=== PATIENT | male | born 1950 | race Caucasian/White ===

== ENCOUNTER 2018-03-02 19:25 | Inpatient (IN) | payer OTHER, MEDICARE ==
[~2018-03-02] VITALS: Ht 172.7 cm; Wt 102.1 kg
--- NOTE | 2018-03-02 19:50 | NUR ---
PT BIB PA WITH A C/O SI WITH A PLAN. PT IS ON A 5250 OF TODAY 03/02/18. PT STATED THAT HE REGRETS THE DECISION THAT HE MADE THE OTHER DAY. PT IS CALM AND COOPERATIVE. PT IS AWAITING MED CLEARANCE FOR MAE PSYCH.
--- NOTE | 2018-03-02 20:10 | NUR ---
CALLED [employer] RE: [id number]. ORIGINAL 5250 IS IN THE CHART.
--- NOTE | 2018-03-02 20:10 | NUR ---
PT IS GOING TO [facility]
[2018-03-02 20:23] LABS: BASOPHILS % (AUTO) 0.3 % (0.0-2.0); EOSINOPHILS % (AUTO) 0.5 % (0.0-6.0); HEMATOCRIT 45 % (39-51); HEMOGLOBIN 15.5 g/dL (13.5-17.5); LYMPHOCYTES # (AUTO) 0.8 /CMM (0.8-4.8); LYMPHOCYTES % (AUTO) 10.8 % (20.0-44.0); MEAN CORPUSCULAR HGB CONC 34 g/dl (31.0-36.0); MEAN CORPUSCULAR VOLUME 87 fL (80-96); MONOCYTES # (AUTO) 0.3 /CMM (0.1-1.30); MONOCYTES % (AUTO) 4.3 % (2.0-12.0); NEUTROPHILS # (AUTO) 5.9 /CMM (1.8-8.9); NEUTROPHILS % (AUTO) 84.1 % (43.0-81.0); PLATELET COUNT (AUTO) 211 /CMM (150-450)
[2018-03-02 20:48] LABS: ACETAMINOPHEN < 2 ug/ml (10-30); ALANINE AMINOTRANSFERASE 22 U/L (12-78); ALBUMIN 3.8 g/dL (3.4-5.0); ALCOHOL, BLOOD < 3 mg/dL (0-0); ALKALINE PHOSPHATASE 68 U/L (46-116); ASPARTATE AMINOTRANSFERASE 15 U/L (15-37); BILIRUBIN,DIRECT 0.1 mg/dL (0.0-0.2); BILIRUBIN,TOTAL 0.6 mg/dL (0.2-1.0); CALCIUM, SERUM 9.4 mg/dL (8.5-10.1); CARBON DIOXIDE 24 mmol/L (21-32); CHLORIDE 104 mmol/L (98-107); GLUCOSE 188 mg/dL (74-106); SALICYLATE 1.1 mg/dL (2.8-20.0); SODIUM SERUM 137 mmol/L (136-145); TOTAL PROTEIN, SERUM 7.3 g/dL (6.4-8.2); UREA NITROGEN, BLOOD 21 mg/dL (7-18)
[2018-03-02 21:17] LABS: APPEARANCE,URINE Clear (CLEAR); BILIRUBIN,URINE Negative (NEGATIVE); BLOOD, URINE Negative Ery/uL (NEGATIVE); COLOR,URINE Yellow (YELLOW); KETONES,URINE Negative (NEGATIVE); LEUKOCYTE ESTERASE ,URINE Negative (NEGATIVE); NITRITE, URINE Negative (NEGATIVE); PH,URINE 5.5 (5.0-8.0); PROTEIN,URINE Negative (NEGATIVE); UGLUCOSE Negative (NEGATIVE); UROBILINOGEN,URINE 0.2 EU/dL (0.2)
--- NOTE | 2018-03-02 21:20 | NUR ---
CALLED LAB RE: URINE TESTS NOT RESULTED YET.
--- NOTE | 2018-03-02 21:33 | NUR ---
REPORT TO HIRAL REVELES .
[2018-03-02 21:45] VITALS: BP 162/89
[2018-03-02 22:00] VITALS: BP 162/89
--- NOTE | 2018-03-02 22:00 | NUR ---
DISTRIBUTION COLLECTION OPERATOR NOTES RECEIVED PT FROM THE ED. PT A & 0X4, COOPERATIVE. PT TRANSFERRED FROM [facility]. PT HAS AN ABRASION TO FOREHEAD AND LACERATION ON NOSE, OTHER AGGARWAL SKIN IS INTACT. PT AMBULATE WITH STEADY GATE. PT SHOWS NO SIGNS OF DISTRESS. PT ORIENTED TO FLOOR AND ROOM. ALL SAFETY PRECAUTION TAKEN. ALL ADMISSION ORDERS COMPLETED. WILL CONT TO MONITOR.
[2018-03-02] MEDS ORDERED: MAG HYDROX/AL HYDROX/SIMETH 30 ML UDC PO PRN (22:30)
[2018-03-02] MEDS ORDERED: ACETAMINOPHEN 325 MG TABLET PO PRN (22:30)
[2018-03-02] MEDS ORDERED: LORAZEPAM 0.5 MG TABLET PO PRN (22:30)
[2018-03-02] MEDS ORDERED: MAGNESIUM HYDROXIDE 30 ML UDC PO PRN (22:30)
[2018-03-03] MEDS: ZOLPIDEM TARTRATE 5 MG TABLET PO PRN ×2 (00:17→22:27)
--- NOTE | 2018-03-03 04:42 | NUR ---
GPS RN NOTE: PATIENT AWAKE READING MAGAZINE IN ROOM. DENIES COMPLAINTS. SLEEPING PILL PRN BRIEFLY EFFECTIVE. NO APPARENT DISTRESS
--- NOTE | 2018-03-03 06:15 | NUR ---
RN CLOSING NOTES NO SIGNIFICANT CHANGE IN PTS CONDITION OVER SHIFT. ALL MEDS GIVEN, NEEDS ATTENDED. WILL ENDORSE TO AM RN.
[2018-03-03 06:55] LABS: BASOPHILS % (AUTO) 0.3 % (0.0-2.0); EOSINOPHILS % (AUTO) 1.1 % (0.0-6.0); HEMATOCRIT 47 % (39-51); HEMOGLOBIN 15.9 g/dL (13.5-17.5); LYMPHOCYTES % (AUTO) 15.2 % (20.0-44.0); MEAN CORPUSCULAR HGB CONC 34 g/dl (31.0-36.0); MEAN CORPUSCULAR VOLUME 89 fL (80-96); MONOCYTES # (AUTO) 0.7 /CMM (0.1-1.30); MONOCYTES % (AUTO) 10.5 % (2.0-12.0); NEUTROPHILS % (AUTO) 72.9 % (43.0-81.0); PLATELET COUNT (AUTO) 196 /CMM (150-450); WHITE BLOOD COUNT (AUTO) 6.9 K/uL (4.3-11.0)
[2018-03-03 07:16] LABS: ALBUMIN 3.8 g/dL (3.4-5.0); BILIRUBIN,TOTAL 0.6 mg/dL (0.2-1.0); CALCIUM, SERUM 9.1 mg/dL (8.5-10.1); CREATININE 0.8 mg/dL (0.6-1.3); TOTAL PROTEIN, SERUM 7.3 g/dL (6.4-8.2)
[2018-03-03 07:27] LABS: CHOLESTEROL 194 mg/dL (<200); HDL CHOLESTEROL 43 mg/dL (40-60); LDL 122 mg/dL (0-99); TRIGLYCERIDES 146 mg/dL (30-150)
[2018-03-03 08:13] VITALS: BP 140/90
[2018-03-03] MEDS ORDERED: LORA0.5T PO (08:32)
[2018-03-03] MEDS ORDERED: FENO54TA PO (08:32)
[2018-03-03] MEDS ORDERED: QUET400T PO (08:32)
[2018-03-03] MEDS ORDERED: HYDR-3028 PO (08:32)
[2018-03-03] MEDS ORDERED: ATOR10TA PO (08:32)
[2018-03-03] MEDS ORDERED: CYCL5TAB PO (08:32)
[2018-03-03] MEDS: ESCITALOPRAM OXALATE (10 MG) 10 MG TABLET PO SCH (12:51)
[2018-03-03 16:00] VITALS: BP 129/74
--- NOTE | 2018-03-03 16:58 | NUR ---
Initial Discharge Plan: Pt currently resides by himself at [address] [place] [address]; ([phone]). Per pt, he would like to return home. SW will work with the pt and the MD regarding appropriate discharge plans. SW will form a safe and proper discharge.
[2018-03-03 20:00] VITALS: BP 156/86
[2018-03-03] MEDS: FENOFIBRATE 54 MG PO SCH (22:26)
[2018-03-03] MEDS: ATORVASTATIN 10 MG TABLET PO SCH (22:27)
[2018-03-03] MEDS: QUETIAPINE FUMARATE 100 MG TABLET PO SCH (22:27)
[2018-03-04 07:52] LABS: THYROID STIMULATING HORMONE 4.128 uIU/mL (0.358-3.74)
[2018-03-04 08:00] VITALS: BP 143/80
[2018-03-04] MEDS: ESCITALOPRAM OXALATE (10 MG) 10 MG TABLET PO SCH (09:00)
[2018-03-04 16:00] VITALS: BP 142/85
--- NOTE | 2018-03-04 19:30 | NUR ---
RN NOTES PATIENT SITTING IN CHAIR IN HALLWAY. AO X 3, ABLE TO MAKE NEEDS KNOWN. NO ACUTE DISTRESS NOTED. DENIES ANY PAIN AT THIS TIME. DENIES ANY SUICIDAL IDEATIONS. PATIENT'S BEHAVIOR IS APPROPRIATE. SAFETY REMINDERS GIVEN. BED IN ROOM IS SET ON LOW WITH BILATERAL UPPER SIDE RAILS UP. PATIENT ABLE TO USE CALL BUTTON. WILL CONTINUE TO MONITOR.
[2018-03-04 20:00] VITALS: BP 140/89
[2018-03-04] MEDS: ATORVASTATIN 10 MG TABLET PO SCH (21:20)
[2018-03-04] MEDS: QUETIAPINE FUMARATE 100 MG TABLET PO SCH (21:20)
[2018-03-04] MEDS: ZOLPIDEM TARTRATE 5 MG TABLET PO PRN (21:20)
[2018-03-04] MEDS: FENOFIBRATE 54 MG PO SCH (21:21)
--- NOTE | 2018-03-05 06:14 | NUR ---
RN NOTES PATIENT ASLEEP, EASILY AROUSABLE. RESPIRATIONS EVEN. NO SIGNS OF PAIN NOTED. DUE MEDS GIVEN WITH NO ASE NOTE. NEEDS ATTENDED. SAFETY PRECAUTIONS AND COMFORT MEASURES IN PLACE. WILL GIVE REPORT TO DAY SHIFT FOR CONTINUITY OF CARE.
[2018-03-05 08:00] VITALS: BP 139/81
[2018-03-05] MEDS: SERTRALINE HCL 50 MG TABLET PO SCH (08:57)
[2018-03-05 16:00] VITALS: BP 157/78
[2018-03-05 18:44] LABS: APPEARANCE,URINE CLEAR (CLEAR); BILIRUBIN,URINE NEGATIVE (NEGATIVE); BLOOD, URINE NEGATIVE Ery/uL (NEGATIVE); COLOR,URINE YELLOW (YELLOW); KETONES,URINE TRACE (NEGATIVE); LEUKOCYTE ESTERASE ,URINE NEGATIVE (NEGATIVE); NITRITE, URINE NEGATIVE (NEGATIVE); PH,URINE 5.5 (5.0-8.0); PROTEIN,URINE NEGATIVE (NEGATIVE); UGLUCOSE NEGATIVE (NEGATIVE); UROBILINOGEN,URINE 0.2 EU/dL (0.2)
[2018-03-05 19:09] LABS: BACTERIA,URINE None seen /HPF (None Seen); MUCUS,URINE Many /LPF (None Seen); RBC,URINE 0-2 /HPF (0-2); SQUAMOUS EPITHELIAL CELL,UR Few /HPF (None Seen); WBC,URINE 0-2 /HPF (0-3)
[2018-03-05 20:03] VITALS: BP 135/76
[2018-03-05] MEDS: FENOFIBRATE 54 MG PO SCH (21:36)
[2018-03-05] MEDS: ATORVASTATIN 10 MG TABLET PO SCH (21:37)
[2018-03-05] MEDS: QUETIAPINE FUMARATE 100 MG TABLET PO SCH (21:37)
--- NOTE | 2018-03-05 21:37 | NUR ---
AMBIEN 5 MG TAB 1 PO GIVEN FOR INSOMNIA PER PATIENT'S REQUEST
[2018-03-05] MEDS: ZOLPIDEM TARTRATE 5 MG TABLET PO PRN (21:39)
[2018-03-06 08:22] VITALS: BP 154/81
[2018-03-06] MEDS: SERTRALINE HCL 50 MG TABLET PO SCH (08:32)
[2018-03-06 16:00] VITALS: BP 131/87
--- NOTE | 2018-03-06 16:45 | NUR ---
ALESSIA faxed an initial treatment request form to the pt's insurance called [facility] at [phone].
[2018-03-06 20:00] VITALS: BP 136/74
[2018-03-06] MEDS: ATORVASTATIN 10 MG TABLET PO SCH (21:29)
[2018-03-06] MEDS: QUETIAPINE FUMARATE 100 MG TABLET PO SCH (21:29)
[2018-03-06] MEDS: ZOLPIDEM TARTRATE 5 MG TABLET PO PRN (21:32)
[2018-03-06] MEDS: FENOFIBRATE 54 MG PO SCH (21:53)
--- NOTE | 2018-03-07 06:20 | NUR ---
GPS/RN PATIENT STILL SLEEPING AT THIS TIME, APPEAR COMFORTABLE, BREATHING EVEN AND UNLABORED, NO BEHAVIOR PROBLEM NOTED THE WHOLE SHIFT, ALL NEEDS ATTENDED AT THIS TIME. WILL CONTINUE TO MONITOR.
[2018-03-07 08:52] VITALS: BP 143/87
[2018-03-07] MEDS: SERTRALINE HCL 50 MG TABLET PO SCH (09:06)
--- NOTE | 2018-03-07 10:57 | NUR ---
ALESSIA spoke to Tita ([phone]) at [facility] and she stated that the pt is authorized for 7 days so from March 02-March 09 (authorization #[id number]). ALESSIA informed Tita that the pt will be discharging tomorrow on his 6th day.
--- NOTE | 2018-03-07 11:09 | NUR ---
ALESSIA spoke to Kenia Garner ([phone]) and discussed that she will be picking the pt up at 11am tomorrow and taking him home to [address] [place] [address].
[2018-03-07 16:00] VITALS: BP 136/71
[2018-03-07 20:27] VITALS: BP 144/70
[2018-03-07] MEDS: ATORVASTATIN 10 MG TABLET PO SCH (21:20)
[2018-03-07] MEDS: FENOFIBRATE 54 MG PO SCH (21:20)
[2018-03-07] MEDS: QUETIAPINE FUMARATE 100 MG TABLET PO SCH (21:21)
[2018-03-08] MEDS: ZOLPIDEM TARTRATE 5 MG TABLET PO PRN (00:33)
[2018-03-08 07:50] LABS: BASOPHILS % (AUTO) 0.3 % (0.0-2.0); EOSINOPHILS % (AUTO) 1.9 % (0.0-6.0); HEMATOCRIT 47 % (39-51); HEMOGLOBIN 15.6 g/dL (13.5-17.5); LYMPHOCYTES # (AUTO) 1.1 /CMM (0.8-4.8); LYMPHOCYTES % (AUTO) 16.2 % (20.0-44.0); MEAN CORPUSCULAR HGB CONC 34 g/dl (31.0-36.0); MEAN CORPUSCULAR VOLUME 90 fL (80-96); MONOCYTES # (AUTO) 0.6 /CMM (0.1-1.30); NEUTROPHILS # (AUTO) 4.9 /CMM (1.8-8.9); NEUTROPHILS % (AUTO) 72.6 % (43.0-81.0); PLATELET COUNT (AUTO) 168 /CMM (150-450); RED BLOOD CELL COUNT(AUTO) 5.19 MIL/uL (4.5-6.0); WHITE BLOOD COUNT (AUTO) 6.8 K/uL (4.3-11.0)
[2018-03-08 08:00] VITALS: BP 129/81
[2018-03-08 08:03] LABS: CALCIUM, SERUM 9.1 mg/dL (8.5-10.1); MAGNESIUM 2.1 mg/dL (1.8-2.4); PHOSPHORUS 3.1 mg/dL (2.5-4.9)
[2018-03-08] MEDS: SERTRALINE HCL 50 MG TABLET PO SCH (08:26)
--- NOTE | 2018-03-08 10:42 | NUR ---
pt discharge by dr. haines. hydraulic jack adjuster aware. pt going [id number] [place] [address]. pt is being picked up by a friend, ren garber [phone]. pt is alert oriented x 4 and ambulatory. he is calm and cooperative. denies s/i and/or h/i at time of dc. no acute distress noted. exitcare completed. psych medication prescribed. pt has medication medication at home, states he does not a prescription from hydraulic jack adjuster. skin intact. belongings with patient. pt left in stable condition.
--- NOTE | 2018-03-08 11:56 | NUR ---
Discharge Note: - Pt was discharged home to [address] [place] [address]. He was picked up by Jackie Garner ([phone]) around 11am. Pt was given three referrals for psychiatrists that are listed below and was directly referred to one of them. Upon discharge, the pt denied suicidal and homicidal ideation as well as visual and auditory hallucinations. Pts mood and affect were calm and euthymic upon discharge. The pt was referred to be under the care of the psychiatrist, Dr. Shiv Montenegro, who is located at [address] [place] [address]; ) and will be under the care of his medical transcription supervisor, Dr. Grupo Reardon, who is located at [address] [place], [place] [id number]; . HEATHER MANDUJANO Primary specialty: Psychiatry Additional specialty: Psychiatry (Geriatric) [address] [place] [address] SHIV MONTENEGRO Primary specialty: Psychiatry Additional specialty: Psychiatry (Geriatric) [address] [place] [address] BROOKLYN DEL CID Primary specialty: Psychiatry Additional specialty: Psychiatry (Geriatric) [address] [place] [address]
--- NOTE | 2018-03-08 12:18 | NUR ---
ALESSIA faxed the discharge paperwork to Tita ([phone]) at [facility] to her fax number ([phone]).
== END 2018-03-08 10:50 | disposition home or self-care (01) | DRG 885 ==
LOC: ER 19:33 → GPS 22:11
PROVIDERS: ADMIT Psychiatry & Neurology Psychiatry; ATTEND Psychiatry & Neurology Psychiatry
DX: F32.2 Major depressive disorder, single episode, severe without psychotic features (principal); R45.851 Suicidal ideations; E66.01 Morbid (severe) obesity due to excess calories; E11.9 Type 2 diabetes mellitus without complications; E86.0 Dehydration; F43.20 Adjustment disorder, unspecified; F41.9 Anxiety disorder, unspecified; E03.9 Hypothyroidism, unspecified; E78.5 Hyperlipidemia, unspecified; F29 Unspecified psychosis not due to a substance or known physiological condition; Z68.34 Body mass index [BMI] 34.0-34.9, adult; Z81.8 Family history of other mental and behavioral disorders
CPT/HCPCS: 36415; 80048-TC; 80053-TC; 80061-TC; 80076-TC; 80305; 81000-TC; 83735-TC; 84100-TC; 84439-TC; 84443-TC; 85025-TC; 87081-TC; A4606; G0480; Z7610